=== PATIENT | male | born 1990 | race African-American/Black ===

== ENCOUNTER 2018-03-08 10:25 | Inpatient (IN) ==
[2018-03-08] MEDS ORDERED: Aluminum/Magnesium/Simethacone Susp 30 ML UDC PO PRN (14:19)
[2018-03-08] MEDS ORDERED: Acetaminophen 325 MG Tablet PO PRN (14:19)
--- NOTE | 2018-03-08 19:27 | P.HPPSY ---
Provisional Diagnosis Admission Date: March 08, 2018 13:06 Elmer I.: Unspecified psychosis, r/o Substance induced psychotic disorder Competence Certification of Person's Competence To Provide Express and Informed Consent I have personally examined Hugo Ho, a person being served at [facility] on, March 08, 2018 1927. Express and informed consent means consent voluntarily given in writing, by a competent person, after sufficient explanation and disclosure of the subject matter involved to enable the person to make a knowing and willful decision without any element of force, fraud, deceit, duress, or other form of constraint or coercion. This person is 18 years of age or older, is not now known to be incompetent to consent to treatment with a guardian advocate, and does not have a health care surrogate or proxy currently making medical treatment decisions. I have found this person to be one of the following: [xxx] Competent to provide express and informed consent, as defined above, for voluntary admission to this facility and is competent to provide express and informed consent for treatment. He/she has the consistent capacity to make well reasoned, willful, and knowing decisions concerning his or her medical or mental health treatment. The person fully and consistently understands the purpose of the admission for examination/placement and is fully capable of personally exercising all rights assured under [place] [] Incompetent to provide express and informed consent to voluntary admission, and this is incompetent to provide express and informed consent to treatment. The person must be transferred to involuntary status and a petition for a guardian advocate filed with the Circuit Court. [] Refusing to provide express and informed consent to voluntary admission but is competent to provide express and informed consent for treatment. The person must be discharged or transferred to involuntary status. Form shall be completed within 24 hours of a person's arrival at the receiving facility and filed in the clinical record of each person: 1. Admitted on a voluntary basis 2. Permitted to provide express and informed consent to his/her own treatment 3. Allowed to transfer from involuntary to voluntary status 4. Prior to permitting a person to consent to his or her own treatment after having been previously found incompetent to consent to treatment. History of Present Illness Capacity: Has capacity History of Present Illness: Patient is a 27-year-old -Stateless man, single, no children, unemployed with a past psychiatric history of bipolar disorder as per patient, multiple psychiatric admissions, multiple suicide attempt as per patient, with a substance use history significant for crack cocaine use, marijuana use, alcohol use, with no past medical history who was transferred from another facility under Villanueva act due to patient endorsing auditory hallucinations and paranoid ideations. As per chart patient had presented to the ED with auditory hallucinations and command auditory hallucinations to hurt others with urine toxicology positive for cocaine and marijuana. Patient was found lying in hospital bed, seen with nurse. Discussion nursing staff reported the patient mostly seclusive to her room and sleeping. Patient was able to wake up to interact with interview. States that he wants to get his life back together, reporting having had auditory hallucinations recently and had taken Seroquel in the past to address this. Patient denies any suicide ideations at this time, denies any visual hallucinations or paranoid ideations currently. Patient states that he has been having worsening of symptoms during substance use but states that he just needs to recover. Patient noted with superficial cooperation during interview. Family psychiatric history: Unable to assess due to limited cooperation 's past psychiatric history: Previous psychiatric diagnosis of bipolar disorder , schizophrenia, as per patient, multiple psychiatric admissions, multiple suicide attempts Substance use history: Tobacco use, alcohol use, crack cocaine use and marijuana use Past medical history: Denies but as per chart HIV positive. Allergies: NKDA Social history: Single, no children, unemployed. - Inpatient Certification I certify that the inpatient services were ordered in accordance with Medicare regulations governing the order. This includes certification that hospital inpatient services are reasonable and necessary and in the case of services not specified as inpatient-only under 42 CFR 419.22(n), that they are appropriately provided as inpatient services in accordance to with the 2-midnight benchmark under 43 CFR 412.3(e) I certify that inpatient psychiatric hospital services are medically necessary. Evaluation and treatment and/or diagnostic testing are expected to improve the patient's condition. The patient needs on a daily basis, active treatment furnished directly by or requiring the supervision of inpatient psychiatric facility personnel. Estimated Total Length of Stay (Days): 7 Plans for Post Hospital Care: Not yet determined Review of Systems All other systems reviewed negative except as stated in HPI PMFSH - History History Provided By: Patient, Medical Record - Tobacco History Second Hand Smoke Exposure: No Smoking Status: Never smoker - Alcohol History How Often Do You Have a Drink Containing Alcohol: Never - Substance Use History Substance History: Active Abuse - Substance Use Type Marijuana Status: Active Route Used: Inhalation Reason for Use: Get High Quality Measures - Psychiatric History Psychological trauma history: Unable to assess due to limited cooperation during interview Violence risk to others in the last 6 months: Elevated due to recent complaint altered hallucinations to hurt others Violence risk to self in the last 6 months: Low - Substance Abuse History Drug or alcohol use in the past 12 months: See HPI - Patient Strengths Patient's strengths (minimum of 2): Verbal and communicative Medications and Allergies Active Medications: Active Medications Acetaminophen (Tylenol) 650 mg PO Q4H PRN PRN Reason: Pain 1-5 or Temp >101F Al Hydrox/Mg Hydrox/Simethicone (Mag-Al Plus Susp Liq) 30 ml PO Q6H PRN PRN Reason: DYSPEPSIA Al Hydroxide/Mg Hydroxide (Milk Of Magnesia Liq) 30 ml PO DAILY PRN PRN Reason: CONSTIPATION Diphenhydramine HCl (Benadryl) 50 mg PO HS PRN PRN Reason: INSOMNIA Diphenhydramine HCl (Benadryl Inj) 50 mg IM HS PRN PRN Reason: INSOMNIA Hydroxyzine HCl (Atarax) 50 mg PO Q6H PRN PRN Reason: ANXIETY Nicotine (Habitrol 21 Mg Patch.24 Hr) 1 patch T-DERMAL DAILY [facility] Patch Removal (Remove Old Patch) 1 each T-DERMAL HS [facility] Allergies Allergy/AdvReac Type Severity Reaction Status Date / Time No Known Allergies Allergy Unverified 03/08/18 13:34 Exam Vital signs: Intake & Output 03/08/18 03/08/18 03/09/18 06:59 18:59 06:59 Weight 53.9 kg Other: Weight On Admission 53.9 kg Narrative: Patient not noted to be in acute distress, no gross motor of maladies, signs of tremor or EPS, no psychomotor agitation or retardation. - Constitutional no acute distress, disheveled, cooperative (Superficially) Mental Status Examination Appearance: Dirty, Disheveled Consciousness: Somnolent Orientation: Person, Place Motor Activity: Other (Not formally assessed) Speech: Slow Language: Adequate Fund of Knowledge: Inadequate Attention and Concentration: Inadequate Memory: Impaired Mood: Other ("Not good") Affect: Blunt Thought Process & Associations: Other ([place]) Thought Content: Hallucinations, Delusional Hallucination Type: Auditory Delusion Type: Paranoid Suicidal Ideation: No Suicidal Plan: No Suicidal Intention: No Homicidal Ideation: No Homicidal Plan: No Homicidal Intention: No Insight: Poor Judgment: Poor Assessment and Plan - Assessment (1) Unspecified psychosis Code(s): F29 - Unspecified psychosis not due to a substance or known physiological condition Status: Acute - Plan Plan: Estimated LOS: [] days Patient is a 27-year-old -Stateless man with with a past psychiatric history of bipolar disorder, schizophrenia as per patient, with previous psychiatric admissions and suicide attempts along with polysubstance use disorder with recent intoxication with cocaine and marijuana who was a transfer from a local hospital due to patient endorsing psychotic symptoms in the context of recent substance intoxication. Patient will be admitted under voluntary status, has capacity to consent for treatment. EKG reviewed, QTC is 401 ms, we will order repeat labs in the a.m., start patient on quetiapine 51 g p.o. at bedtime with upper titration for psychosis. We will continue to monitor mood and behavior. Discharge planning a progress. Justification for Continued Inpatient Stay: At risk of further decompensation a lower level of care.
[2018-03-08 20:41] LABS: Chol/HDL Ratio 2.16 Ratio; HDL Cholesterol 50.4 mg/dL (40.0-60.0)
[2018-03-08] MEDS: QUEtiapine 100 MG Tablet PO SCH (21:28)
[2018-03-09 09:49] LABS: Anion Gap 8 meq/L (5-15); Blood Urea Nitrogen 10 mg/dL (7-18); Calcium 8.7 mg/dL (8.5-10.1); Carbon Dioxide 29.5 meq/L (21.0-32.0); Chloride 106 meq/L (98-107); Glomerular Filtration Rate Greater Than 89 mL/min (>89); Glucose,Random 75 mg/dL (74-106); Potassium 3.8 meq/L (3.5-5.1); Sodium 143 meq/L (136-145)
[2018-03-09 13:25] LABS: Hemoglobin A1c 4.1 % (4.3-6.0)
--- NOTE | 2018-03-09 17:01 | P.PNPSY ---
Subjective Remarks: Reviewed electronic medical records and discussed case with staff. Follow-up was conducted in the milieu with MILTON Ramon present. The patient reports that he is doing well. He had just come from taking a shower. States that he sleeping good his appetite is been good. He reports elevated mood. He mentions discharge. However, when asked about auditory hallucinations he is are pacing back and forth and talking about good voices and bad voices. Mental Status Examination Appearance: Dirty, Disheveled Consciousness: Somnolent Orientation: Person, Place Motor Activity: Other (Not formally assessed) Speech: Slow Language: Adequate Fund of Knowledge: Inadequate Attention and Concentration: Inadequate Memory: Impaired Mood: Other ("Not good") Affect: Blunt Thought Process & Associations: Other ([place]) Thought Content: Hallucinations, Delusional Hallucination Type: Auditory Delusion Type: Paranoid Suicidal Ideation: No Suicidal Plan: No Suicidal Intention: No Homicidal Ideation: No Homicidal Plan: No Homicidal Intention: No Insight: Poor Judgment: Poor Assessment and Plan - Assessment (1) Unspecified psychosis Code(s): F29 - Unspecified psychosis not due to a substance or known physiological condition Status: Acute - Plan Plan: Patient will be reevaluated Sunday by the attending psychiatrist. Continue with current treatment plan. Justification for Continued Inpatient Stay: Moving this patient to a less restrictive environment would likely result in decompensation.
[2018-03-09] MEDS: QUEtiapine 100 MG Tablet PO SCH (20:33)
[2018-03-10] MEDS ORDERED: Haloperidol Inj 5 MG/ML Ampul IM ONE (13:27)
[2018-03-10] MEDS ORDERED: LORazepam 1 MG Tablet PO ONE (13:57)
--- NOTE | 2018-03-10 18:56 | P.PNPSY ---
Subjective Remarks: Reviewed electronic medical records and discussed case with staff. Follow-up was conducted in the hallway. Earlier today patient had to be given 1 mg of p.o. Ativan due to to his agitation and aggression. This was believed to be due to environmental stimulus. He was upset over another patient spreading feces over the finnegan muse and door. As well as agitated patients that were calling out on the unit. Patient remains discharge focused. His affect remains irritable and slightly bizarre. Mental Status Examination Appearance: Dirty, Disheveled Consciousness: Somnolent Orientation: Person, Place Motor Activity: Other (Not formally assessed) Speech: Slow Language: Adequate Fund of Knowledge: Inadequate Attention and Concentration: Inadequate Memory: Impaired Mood: Other ("Not good") Affect: Blunt Thought Process & Associations: Other ([place]) Thought Content: Hallucinations, Delusional Hallucination Type: Auditory Delusion Type: Paranoid Suicidal Ideation: No Suicidal Plan: No Suicidal Intention: No Homicidal Ideation: No Homicidal Plan: No Homicidal Intention: No Insight: Poor Judgment: Poor Assessment and Plan - Assessment (1) Unspecified psychosis Code(s): F29 - Unspecified psychosis not due to a substance or known physiological condition Status: Acute - Plan Plan: Patient will be reevaluated Sunday by the attending psychiatrist. Continue with current treatment plan. Justification for Continued Inpatient Stay: Moving this patient to a less restrictive environment would likely result in decompensation.
[2018-03-10] MEDS: QUEtiapine 100 MG Tablet PO SCH (20:19)
--- NOTE | 2018-03-11 10:21 | P.PNPSY ---
Subjective Remarks: Patient seen and examined with nurse. Chart reviewed. I note that the patient was transferred from [facility] under a Villan[place]va act alleging auditory hallucinations giving him direction and telling him to fight other homeless people. Case discussed with nursing staff who notes patient is somewhat bizarre and paranoid. On my examination today, the patient presents as rambling and tangential. He tells me "I do not hear voices until someone threatens me." He does not report feeling threatened presently and denies any suicidal or homicidal ideation. He exhibits some bizarre ideation and his method of expression is idiosyncratic. When I ask how he is feeling he tells me that he is "happy as a 2 legged camel." We discuss his pattern of substance use. He denies any side effects from medications. No physical complaints. Vital Signs Temp Pulse Resp BP Pulse Ox 03/11/18 15:37 98.1 F 80 18 117/68 100 03/11/18 06:00 97.3 F L 52 L 17 108/68 98 03/10/18 18:20 98.6 F 62 18 104/64 98 Laboratory Tests 03/08/18 03/08/18 03/09/18 19:21 19:21 08:47 Sodium 143 Potassium 3.8 Chloride 106 Carbon Dioxide 29.5 Anion Gap 8 BUN 10 Creatinine 0.96 Estimated GFR Greater than 89 Random Glucose 75 Hemoglobin A1c 4.1 L Calcium 8.7 Triglycerides 49 Cholesterol 109 L LDL Cholesterol, Calc 49 HDL Cholesterol 50.4 Cholesterol/HDL Ratio 2.16 Labs from outside hospital reviewed: CBC reveals mild anemia with a hemoglobin of 12.8. CMP unremarkable except for mild hyperglycemia in a nonfasting sample. Alcohol level was 4 at outside hospital and toxicology was positive for cocaine and cannabinoids. Review of Systems All other systems reviewed negative except as stated in HPI (Limitation: Psychosis) Mental Status Examination Appearance: Disheveled Consciousness: Alert Orientation: Person, Place (At least) Motor Activity: Other (No motor abnormalities noted) Speech: Unremarkable Language: Other ([place]) Fund of Knowledge: Inadequate Attention and Concentration: Inadequate Memory: Impaired (Psychosis interferes) Mood: Good Affect: Blunt Thought Process & Associations: Tangential Thought Content: Bizarre thinking Hallucination Type: None Delusion Type: None Suicidal Ideation: No Suicidal Plan: No Suicidal Intention: No Homicidal Ideation: No Homicidal Plan: No Homicidal Intention: No Insight: Poor Judgment: Poor Assessment and Plan - Assessment (1) Unspecified psychosis Code(s): F29 - Unspecified psychosis not due to a substance or known physiological condition Status: Acute - Plan Plan: Titrate Seroquel to 75 mg at bedtime to target residual psychotic symptoms with plans for ongoing titration to effect and as tolerated. Continue to monitor on the inpatient unit. Continue other medications and care as ordered. Justification for Continued Inpatient Stay: Medication changes. Impairment in reality construction. High risk for decompensation in less restrictive setting. Discharge Planning: Pending psychiatric stabilization. Request Healthcare Surrogate/Guardian Advocate?: No
[2018-03-11] MEDS ORDERED: Haloperidol Inj 5 MG/ML Ampul ONE (19:16)
[2018-03-11] MEDS ORDERED: Haloperidol Inj 5 MG/ML Ampul IM ONE (20:00)
[2018-03-11] MEDS: QUEtiapine 25 MG Tablet PO SCH (20:47)
--- NOTE | 2018-03-12 15:32 | P.PNPSY ---
Subjective Remarks: Reviewed electronic medical records and discussed case with staff. Follow-up was conducted in the hallway. His nurse reports that he had a bad night and was aggressive punching windows. He required an emergency treatment order. Today he is still somewhat manic likely due to the environmental stressors. Looked into his E MAR and no he received the ETO's prior to his first dose of Seroquel. In light of that I will not be making any medication changes as of this time. Mental Status Examination Appearance: Disheveled Consciousness: Alert Orientation: Person, Place (At least) Motor Activity: Other (No motor abnormalities noted) Speech: Unremarkable Language: Other ([place]) Fund of Knowledge: Inadequate Attention and Concentration: Inadequate Memory: Impaired (Psychosis interferes) Mood: Good Affect: Blunt Thought Process & Associations: Tangential Thought Content: Bizarre thinking Hallucination Type: None Delusion Type: None Suicidal Ideation: No Suicidal Plan: No Suicidal Intention: No Homicidal Ideation: No Homicidal Plan: No Homicidal Intention: No Insight: Poor Judgment: Poor Assessment and Plan - Assessment (1) Unspecified psychosis Code(s): F29 - Unspecified psychosis not due to a substance or known physiological condition Status: Acute - Plan Plan: Patient will be reevaluated by the attending psychiatrist. Continue with current treatment plan. Justification for Continued Inpatient Stay: Moving this patient to a less restrictive environment would likely result in decompensation. Request Healthcare Surrogate/Guardian Advocate?: No
[2018-03-12] MEDS: QUEtiapine 25 MG Tablet PO SCH (20:09)
[2018-03-13] MEDS ORDERED: Haloperidol Inj 5 MG/ML Ampul ONE (13:02)
[2018-03-13] MEDS ORDERED: Haloperidol Inj 5 MG/ML Ampul IM ONE (13:02)
--- NOTE | 2018-03-13 20:47 | P.PNPSY ---
Subjective Remarks: Patient seen for follow-up, chart reviewed. Discussion with nursing staff reported that patient noted to be inappropriate times, receive ETO 2 days ago continues to be noted to be internally preoccupied also denying any auditory hallucinations. Patient was found heavily on unit making bizarre behavior movements on the unit. Patient reports that he is feeling "great" stating that he had found ways to calm down. Patient reports eating and drinking well. When explained the patient will require further evaluation and observation patient began to become agitated stating "I do not want to hurt myself but if it all to be out of here want to hurt someone else". Patient was difficult to redirect and becoming increasingly agitated which she required ETO and was given Haldol 5 mg IM/Ativan 2 mg IM for agitation. Review of Systems All other systems reviewed negative except as stated in HPI Mental Status Examination Appearance: Disheveled Consciousness: Alert Orientation: Person, Place (At least) Motor Activity: Other (No motor abnormalities noted) Speech: Unremarkable Language: Other ([place]) Fund of Knowledge: Inadequate Attention and Concentration: Inadequate Memory: Impaired (Psychosis interferes) Mood: Angry Affect: Irritable Thought Process & Associations: Tangential Thought Content: Bizarre thinking Hallucination Type: None Delusion Type: None Suicidal Ideation: No Suicidal Plan: No Suicidal Intention: No Homicidal Ideation: No Homicidal Plan: No Homicidal Intention: No Insight: Poor Judgment: Poor Assessment and Plan - Assessment (1) Unspecified psychosis Code(s): F29 - Unspecified psychosis not due to a substance or known physiological condition Status: Acute - Plan Plan: Patient continues with internal preoccupation, bizarre behavior. Patient receive ETO today due to agitation. We will increase quetiapine to 100 mg p.o. at bedtime for psychosis and mood stabilization. Continue to monitor mood and behavior. Discharge planning in progress. Justification for Continued Inpatient Stay: At risk of further decompensation at lower level care. Request Healthcare Surrogate/Guardian Advocate?: No
[2018-03-13] MEDS: QUEtiapine 100 MG Tablet PO SCH (20:57)
--- NOTE | 2018-03-14 09:29 | P.PNPSY ---
Subjective Remarks: Patient seen and examined with nurse. Chart reviewed. Case discussed with nursing staff who reports patient has been somewhat irritable today. On my examination today, the patient presents as discharged focused. He is quite intrusive and disinhibited. He becomes increasingly agitated when he learns that he will not be discharged today, intruding on my interview with another patient. When not perseverative on discharge, the patient's thought process is tangential. He denies audiovisual hallucinations but appears frankly internally stimulated. He denies suicidal or homicidal ideation. Denies side effects from medications. No physical complaints. Vital Signs Temp Pulse Resp BP Pulse Ox 03/14/18 06:19 97.5 F L 53 L 16 107/66 100 Intake and Output 03/14/18 03/14/18 03/14/18 06:59 14:59 22:59 Other: Weight 52.7 kg Laboratory Results - last 24 hr 03/13/18 17:10 HIV 1&2 Ab/P24 Ag 4thGn Reflex H Labs reviewed. HIV screen results noted. Hospitalist consultation requested to address this. Review of Systems unobtainable due to mental condition Mental Status Examination Appearance: Disheveled Consciousness: Alert Orientation: Person, Place (At least) Motor Activity: Other (Somewhat hyperkinetic but no other motor abnormalities noted.) Speech: Unremarkable Language: Other ([place]) Fund of Knowledge: Inadequate Attention and Concentration: Inadequate Memory: Impaired (Psychosis interferes) Mood: Anxious, Irritable Affect: Irritable, Anxious Thought Process & Associations: Tangential Thought Content: Bizarre thinking Hallucination Type: Other (Appears internally stimulated) Delusion Type: None Suicidal Ideation: No Suicidal Plan: No Suicidal Intention: No Homicidal Ideation: No Homicidal Plan: No Homicidal Intention: No Insight: Poor Judgment: Poor Assessment and Plan - Assessment (1) Unspecified psychosis Code(s): F29 - Unspecified psychosis not due to a substance or known physiological condition Status: Acute - Plan Plan: Titrate Seroquel to 50 mg in the morning and 100 mg at bedtime to target residual psychiatric symptoms. Request hospitalist consultation as noted above. Continue to monitor on the high acuity unit. Continue other medications and care as ordered. Patient is demanding discharge today but remains too psychiatrically decompensated for safe discharge. I will therefore initiate a petition for involuntary psychiatric hospitalization and consult for second opinion. Justification for Continued Inpatient Stay: Medication changes. Impairment in reality construction. High risk for decompensation in less restrictive environment. Discharge Planning: Pending psychiatric stabilization. Request Healthcare Surrogate/Guardian Advocate?: No
[2018-03-14] MEDS: QUEtiapine 25 MG Tablet PO SCH (10:13)
[2018-03-14] MEDS ORDERED: Benztropine Inj 2 MG/2 ML Ampul ONE (19:09)
[2018-03-14] MEDS ORDERED: Benztropine Inj 2 MG/2 ML Ampul IM ONE (19:30)
[2018-03-14] MEDS: QUEtiapine 100 MG Tablet PO SCH (21:20)
--- NOTE | 2018-03-15 09:24 | P.TTN ---
- Patient Problems Problems: 1. Discharge planning 2. Medication compliance 3. Knowledge deficit 4. Lack of coping skills - Progress Toward Goals Provider Present: Dr. Cass Neumann (Dr. Neumann is titrating medications Seroquel, requesting counselor seek up collateral information of possible, patient needs to remain for further stabilization) Psychiatric Counselors Present: Babar Whalen Jr., [facility] (Counselor will attempt to obtain collateral information and discuss discharge disposition with both the patient and the mother.) Group Spec/RT/OT/WILSON Present: STEVE Iqbal (Patient attends groups is mostly in appropriate, needs direction and has difficulty following group rules. ) - Documentation Teaching Recipient: Patient
--- NOTE | 2018-03-15 10:48 | P.CON ---
History of Present Illness Service: Hospitalist Consult date: 03/15/18 Requesting Physician: Deondre Neumann Reason for Consult: Assist with ongoing medical management Primary Care Provider: UNKNOWN History of Present Illness: This is a 27yo male patient with a PMHX significant for HIV, syphilis, anxiety, depression, bipolar disorder who was transferred to [facility] psychiatric unit from another facility for endorsing auditory hallucinations and paranoid ideations. Patient was found to have abnormal HIV test and hospitalist services were consulted to assist with ongoing medical management. Patient seen and examined. Patient is an extremely poor historian. He is very discharged focused. He denies any specific medical history. When asked if he is HIV positive he admits that he is. He says he is compliant with his HIV medications but he cannot tell me the names of any of the medications he takes. He states he follows with "[facility]" which she reports is in [place] "I think". When asked if he is ever been treated for syphilis, he states yes he thinks in 2009. When asked if he had any surgeries in the past, he says no but when asked about the scar on his neck he admits to previous trach and PEG tube placement after he had a seizure. When asked when was his last seizure, he states "a long time ago". He denies any specific medical complaints at this time. He denies any fever or chills. He denies any dizziness or weight loss. He denies any chest pain or shortness of breath. He denies any nausea, vomiting or abdominal pain. Per review of the medical records and the previous facility, patient's urine drug screen was positive for cocaine and cannabis. Review of Systems All other systems reviewed negative except as stated in HPI PMFSH - History History Provided By: Patient, Medical Record - Medical History Medical History: Medical History (Last Updated 03/15/18 @ 10:38 by Tania Siddiqui) Bipolar disorder Depression HIV (human immunodeficiency virus infection) Hx of syphilis Polysubstance abuse - Surgical History Surgical History: Surgical History (Last Updated 03/15/18 @ 10:40 by Tania Siddiqui) H/O hand surgery Hx of tracheostomy PEG (percutaneous endoscopic gastrostomy) status - Family History Family History: Family History (Last Reviewed 03/15/18 @ 10:40 by Tania Artur) Other No pertinent family history - Social History I have reviewed the patient's Social History: Yes - Tobacco History Second Hand Smoke Exposure: Yes Tobacco Use In Past 30 Days: Yes Smoking Status: Current every day smoker Tobacco Type: Cigarettes - Alcohol History How Often Do You Have a Drink Containing Alcohol: 2 to 3 times a week - Substance Use History Substance History: Active Abuse - Substance Use Type Marijuana Status: Active Route Used: Inhalation Frequency: stated ocassional use Reason for Use: Get High Crack/Cocaine Status: Active Route Used: Inhalation Frequency: Unable to obtain Last Used: 2- 3 days ago Reason for Use: Get High Comment: Patient stated he will use " anything I can smoke" Alcohol Status: Active Frequency: 2 16 oz cans of beer, unable to obtain frequency Last Used: yesterday Reason for Use: Feels Good, Fit In Medications and Allergies Active Medications: Active Medications Acetaminophen (Tylenol) 650 mg PO Q4H PRN PRN Reason: Pain 1-5 or Temp >101F Al Hydrox/Mg Hydrox/Simethicone (Mag-Al Plus Susp Liq) 30 ml PO Q6H PRN PRN Reason: DYSPEPSIA Al Hydroxide/Mg Hydroxide (Milk Of Magnesia Liq) 30 ml PO DAILY PRN PRN Reason: CONSTIPATION Diphenhydramine HCl (Benadryl) 50 mg PO HS PRN PRN Reason: INSOMNIA Last Admin: 03/13/18 20:56 Dose: 50 mg Diphenhydramine HCl (Benadryl Inj) 50 mg IM HS PRN PRN Reason: INSOMNIA Hydroxyzine HCl (Atarax) 50 mg PO Q6H PRN PRN Reason: ANXIETY Last Admin: 03/14/18 15:49 Dose: 50 mg Miscellaneous (Pill Splitter) 1 each OTHER UNSCH PRN PRN Reason: SEE LABEL COMMENTS Nicotine (Habitrol 21 Mg Patch.24 Hr) 1 patch T-DERMAL DAILY [facility] Last Admin: 03/15/18 09:37 Dose: 1 patch Patch Removal (Remove Old Patch) 1 each T-DERMAL HS [facility] Last Admin: 03/14/18 21:00 Dose: Not Given Quetiapine Fumarate (Seroquel) 100 mg PO HS [facility] Last Admin: 03/14/18 21:20 Dose: Not Given Quetiapine Fumarate (Seroquel) 50 mg PO DAILY [facility] Last Admin: 03/14/18 10:13 Dose: 50 mg Allergies Allergy/AdvReac Type Severity Reaction Status Date / Time quetiapine [From Seroquel] AdvReac Severe Cramping Verified 03/15/18 07:14 of the Muscles Physical Exam Vital signs: Vital Signs 03/15/18 06:22 Temperature 97.3 F L Pulse Rate 71 Respiratory Rate 16 Blood Pressure 107/70 Pulse Oximetry 99 Narrative: GENERAL: This is a thin young male patient, INAD. Awake and alert. Witnessed ambulating around the unit. SKIN: Warm and dry. HEAD: Atraumatic. Normocephalic. EYES: Pupils equal and round. No scleral icterus. No injection or drainage. ENT: No nasal bleeding or discharge. Mucous membranes pink and moist. NECK: Trachea midline. +well healed previously placed trach scar. CARDIOVASCULAR: Regular rate and rhythm. RESPIRATORY: No accessory muscle use. Clear to auscultation. Breath sounds equal bilaterally. GASTROINTESTINAL: Abdomen soft, non-tender, nondistended. Hepatic and splenic margins not palpable. MUSCULOSKELETAL: Extremities without clubbing, cyanosis, or edema. No obvious deformities. NEUROLOGICAL: Awake and alert. No obvious cranial nerve deficits. Motor grossly within normal limits. Able to move all extremities spontaneously. Normal speech. PSYCHIATRIC: Calm and cooperative. Judgement and insight poor. Assessment and Plan - Plan 27yo male patient with a PMHX significant for HIV, syphilis, anxiety, depression, bipolar disorder who was transferred to [place] inpatient psychiatric unit from another facility for endorsing auditory hallucinations and paranoid ideations. Patient was found to have abnormal HIV test and hospitalist services were consulted to assist with ongoing medical management. Depression Anxiety Bipolar disorder Acute psychosis -management per psychiatric team -check RPR HIV, suspect noncompliant with follow up/antiretroviral medications Hx of syphilis, treated in 2009 by patient report -will obtain Hepatitis profile -Recommend patient follow up with [facility] for treatment of HIV Polysubstance abuse Ongoing tobaccoism UDS 03/08 from outside facility + cocaine and cannabis -discussed smoking cessation DVT prophylaxis -patient is ambulatory Thank you very kindly for this consultation. Discussed Condition With: patient, nursing staff, Dr. Carrizales
--- NOTE | 2018-03-15 11:12 | P.PNPSY ---
Subjective Remarks: Patient seen and examined with nurse. Chart reviewed. Case discussed with nursing staff. Patient experienced possible dystonic reaction involving his back last evening. This reportedly responded well to IM Cogentin. He refused his HS dose of Seroquel. Case discussed in treatment team. Therapists note patient is bizarre in groups and unpredictable. On my exam, patient remains extremely discharge focused. I try to engage him in a discussion of his reported medication side effect from last night. However, the patient refuses to discuss anything besides his desire for discharge. He remains internally stimulated, paranoid and bizarre. He exhibits poor frustration tolerance. He is unable to tolerate extended interview and storms off. No evident side effects from medications, and in particular no noted motoric side effects from medications. No physical complaints. Vital Signs Temp Pulse Resp BP Pulse Ox 03/15/18 06:22 97.3 F L 71 16 107/70 99 Laboratory Results - last 24 hr 03/15/18 03/15/18 03/15/18 10:12 10:12 10:12 Vitamin B12 499 TSH 1.530 RPR Titer 1:2 H RPR Reactive H Hepatitis A IgM Ab Nonreactive Hep Bs Antigen Nonreactive Hep B Core IgM Ab Nonreactive Hep C IgG Ab Nonreactive Labs reviewed. Review of Systems All other systems reviewed negative except as stated in HPI (Limitation: Psychosis) Mental Status Examination Appearance: Disheveled Consciousness: Alert Orientation: Person, Place (At least) Motor Activity: Other (No hand tremor, no dystonia, no dyskinesia, no other motor abnormality noted.) Speech: Unremarkable Language: Other (Rambling) Fund of Knowledge: Inadequate Attention and Concentration: Inadequate Memory: Impaired (Psychosis interferes) Mood: Oppositional, Anxious, Irritable Affect: Irritable, Anxious Thought Process & Associations: Tangential Thought Content: Bizarre thinking, Hallucinations, Delusional Hallucination Type: Other (Internally preoccupied) Delusion Type: Paranoid Suicidal Ideation: No Homicidal Ideation: No Insight: Poor Judgment: Poor Assessment and Plan - Assessment (1) Unspecified psychosis Code(s): F29 - Unspecified psychosis not due to a substance or known physiological condition Status: Acute - Plan Plan: Possible dystonic reaction associated with Seroquel. Seroquel is among the antipsychotics least associated with significant EPS, and so I do not think that switching to a different agent would be helpful. Patient does require ongoing antipsychotic therapy for his psychotic symptoms. I will therefore add scheduled Cogentin and continue to offer the Seroquel. To consider further titration of Seroquel dose over the weekend. Continue to monitor on the high acuity unit. Continue other medications and care as ordered. Hospitalist input noted and appreciated. Justification for Continued Inpatient Stay: Medication change. Impairment in reality construction. Risk for decompensation in less restrictive environment. Discharge Planning: Pending psychiatric stabilization Request Healthcare Surrogate/Guardian Advocate?: No
[2018-03-15 11:22] LABS: Hepatitits B Surface Antigen Nonreactive (Nonreactive)
[2018-03-15 11:41] LABS: Thyroid Stimulating Hormone 1.53 uIU/mL (0.358-3.740)
[2018-03-15 12:02] LABS: Hepatitis A IgM Antibody Nonreactive (Nonreactive)
[2018-03-15 15:00] LABS: HIV 1 Antibody Positive (Negative); HIV 2 Antibody Negative (Negative)
--- NOTE | 2018-03-15 17:57 | P.CONPSY ---
Provisional Diagnosis Admission Date: March 08, 2018 13:06 [place] I.: Unspecified psychosis, r/o Substance induced psychotic disorder History of Present Illness Service: Psychiatry Consult date: 03/15/18 Requesting Physician: Deondre Neumann Reason for Consult: Second opinion Primary Care Provider: UNKNOWN History of Present Illness: Patient is a 27-year-old -[place] man, single, no children, unemployed with a past psychiatric history of bipolar disorder as per patient, multiple psychiatric admissions, multiple suicide attempt as per patient, with a substance use history significant for crack cocaine use, marijuana use, alcohol use, with no past medical history who was transferred from another facility under [facility] due to patient endorsing auditory hallucinations and paranoid ideations. Patient was found ambulating on the unit, noted with bizarre behavior and noted to be talking to self, responding to internal stimuli in the day room. Patient states that he feeling "awesome", noted to endorse vague physical symptoms such as "feeling tingling, something pulling my leg" denies any AVH, reports sleeping well. Review of Systems All other systems reviewed negative except as stated in HPI PMFSH - History History Provided By: Patient, Medical Record - Medical History Medical History: Medical History (Last Updated 03/15/18 @ 10:38 by Tania Siddiqui) Bipolar disorder Depression HIV (human immunodeficiency virus infection) Hx of syphilis Polysubstance abuse - Surgical History Surgical History: Surgical History (Last Updated 03/15/18 @ 10:40 by Tania Siddiqui) H/O hand surgery Hx of tracheostomy PEG (percutaneous endoscopic gastrostomy) status - Family History Family History: Family History (Last Reviewed 03/15/18 @ 10:40 by Tania Siddiqui) Other No pertinent family history - Tobacco History Second Hand Smoke Exposure: Yes Tobacco Use In Past 30 Days: Yes Smoking Status: Current every day smoker Tobacco Type: Cigarettes - Alcohol History How Often Do You Have a Drink Containing Alcohol: 2 to 3 times a week - Substance Use History Substance History: Active Abuse - Substance Use Type Marijuana Status: Active Route Used: Inhalation Frequency: stated ocassional use Reason for Use: Get High Crack/Cocaine Status: Active Route Used: Inhalation Frequency: Unable to obtain Last Used: 2- 3 days ago Reason for Use: Get High Comment: Patient stated he will use " anything I can smoke" Alcohol Status: Active Frequency: 2 16 oz cans of beer, unable to obtain frequency Last Used: yesterday Reason for Use: Feels Good, Fit In Medications and Allergies Active Medications: Active Medications Acetaminophen (Tylenol) 650 mg PO Q4H PRN PRN Reason: Pain 1-5 or Temp >101F Al Hydrox/Mg Hydrox/Simethicone (Mag-Al Plus Susp Liq) 30 ml PO Q6H PRN PRN Reason: DYSPEPSIA Al Hydroxide/Mg Hydroxide (Milk Of Magnesia Liq) 30 ml PO DAILY PRN PRN Reason: CONSTIPATION Benztropine Mesylate (Cogentin) 1 mg PO BID [facility] Last Admin: 03/15/18 12:15 Dose: 1 mg Diphenhydramine HCl (Benadryl) 50 mg PO HS PRN PRN Reason: INSOMNIA Last Admin: 03/13/18 20:56 Dose: 50 mg Diphenhydramine HCl (Benadryl Inj) 50 mg IM HS PRN PRN Reason: INSOMNIA Hydroxyzine HCl (Atarax) 50 mg PO Q6H PRN PRN Reason: ANXIETY Last Admin: 03/14/18 15:49 Dose: 50 mg Miscellaneous (Pill Splitter) 1 each OTHER UNSCH PRN PRN Reason: SEE LABEL COMMENTS Nicotine (Habitrol 21 Mg Patch.24 Hr) 1 patch T-DERMAL DAILY [facility] Last Admin: 03/15/18 09:37 Dose: 1 patch Patch Removal (Remove Old Patch) 1 each T-DERMAL HS [facility] Last Admin: 03/14/18 21:00 Dose: Not Given Quetiapine Fumarate (Seroquel) 100 mg PO HS [facility] Last Admin: 03/14/18 21:20 Dose: Not Given Quetiapine Fumarate (Seroquel) 50 mg PO DAILY [facility] Last Admin: 03/14/18 10:13 Dose: 50 mg Allergies Allergy/AdvReac Type Severity Reaction Status Date / Time No Known Allergies Allergy Unverified 03/15/18 12:24 Exam Vital signs: Vital Signs 03/15/18 06:22 Temperature 97.3 F L Pulse Rate 71 Respiratory Rate 16 Blood Pressure 107/70 Pulse Oximetry 99 - Constitutional no acute distress, cooperative Mental Status Examination Appearance: Disheveled Consciousness: Alert Orientation: Person, Place (At least) Motor Activity: Other (No hand tremor, no dystonia, no dyskinesia, no other motor abnormality noted.) Speech: Unremarkable Language: Other (Rambling) Fund of Knowledge: Inadequate Attention and Concentration: Inadequate Memory: Impaired (Psychosis interferes) Mood: Anxious Affect: Irritable, Anxious Thought Process & Associations: Tangential Thought Content: Bizarre thinking, Hallucinations, Delusional Hallucination Type: Other (Internally preoccupied) Delusion Type: Paranoid Suicidal Ideation: No Suicidal Plan: No Suicidal Intention: No Homicidal Ideation: No Homicidal Plan: No Homicidal Intention: No Insight: Poor Judgment: Poor Assessment and Plan - Assessment (1) Unspecified psychosis Code(s): F29 - Unspecified psychosis not due to a substance or known physiological condition Status: Acute - Plan Plan: I have seen and examined this patient, reviewed the documentation, and I agree and concur with Dr. Neumann assessment and plan. I have completed second opinion for the petition for involuntary hospitalization. Consult appreciated. Justification for Continued Inpatient Stay: At risk of further decompensation at lower level care. Request Healthcare Surrogate/Guardian Advocate?: No
[2018-03-15] MEDS: QUEtiapine 100 MG Tablet PO SCH (21:11)
[2018-03-16] MEDS: QUEtiapine 25 MG Tablet PO SCH (08:36)
--- NOTE | 2018-03-16 15:50 | P.PN ---
Subjective Interval history: Follow patient with HIV. Patient seen ambulating around the unit without any difficulty. He does not voice any medical complaints. He wants to know when he can be discharged. Discussed with nursing staff, no adverse events noted overnight. Physical Exam Vital signs: Vital Signs 03/15/18 18:30 03/16/18 06:00 Temperature 97.3 F L Pulse Rate 96 H 63 Respiratory Rate 17 18 Blood Pressure 127/72 114/62 Pulse Oximetry 98 99 Narrative: GENERAL: This is a thin young male patient, INAD. Awake and alert. Witnessed ambulating around the unit. SKIN: Warm and dry. HEENT: Atraumatic. Normocephalic. Pupils equal and round. No scleral icterus. No injection or drainage. No nasal bleeding or discharge. Mucous membranes pink and moist. NECK: Trachea midline. +well healed previously placed trach scar. CARDIOVASCULAR: Regular rate and rhythm. RESPIRATORY: No accessory muscle use. Clear to auscultation. Breath sounds equal bilaterally. GASTROINTESTINAL: Abdomen soft, non-tender, nondistended. Hepatic and splenic margins not palpable. MUSCULOSKELETAL: Extremities without clubbing, cyanosis, or edema. No obvious deformities. NEUROLOGICAL: Awake and alert. No obvious cranial nerve deficits. Motor grossly within normal limits. Able to move all extremities spontaneously. Normal speech. PSYCHIATRIC: Calm and cooperative. Judgement and insight poor. Results - Labs CBC & Chem 7: 03/09/18 08:47 Assessment and Plan - Plan 27yo male patient with a PMHX significant for HIV, syphilis, anxiety, depression, bipolar disorder who was transferred to [place] inpatient psychiatric unit from another facility for endorsing auditory hallucinations and paranoid ideations. Patient was found to have abnormal HIV test and hospitalist services were consulted to assist with ongoing medical management. Depression Anxiety Bipolar disorder Acute psychosis -management per psychiatric team HIV, suspect noncompliant with follow up/antiretroviral medications Hx of syphilis, treated in 2009 by patient report, low titer Hep profile neg -We will obtain CD4 count to determine if prophylaxis treatment indicated -Recommend patient follow up with [facility] for treatment of HIV Polysubstance abuse Ongoing tobaccoism UDS 03/08 from outside facility + cocaine and cannabis -discussed smoking cessation DVT prophylaxis -patient is ambulatory Patient appears stable from hospitalist standpoint. [facility] will sign off. Please reconsult if needed. Discussed Condition With: patient, nursing staff
--- NOTE | 2018-03-16 18:39 | P.PNPSY ---
Subjective Remarks: Reviewed electronic medical records and discussed case with staff. Follow-up was conducted in the hallway with MILTON Ghotra present. The patient was noted to be acting slightly bizarre but it did not be manner in the hallway. His nurse reports he has been compliant with his medications and had only one incident of slamming doors when his food was not what he wanted. He does report that he sleeping and eating well. He states that his mood is happy and his affect does seem to be fairly euthymic today. Mental Status Examination Appearance: Disheveled Consciousness: Alert Orientation: Person, Place (At least) Motor Activity: Other (No hand tremor, no dystonia, no dyskinesia, no other motor abnormality noted.) Speech: Unremarkable Language: Other (Rambling) Fund of Knowledge: Inadequate Attention and Concentration: Inadequate Memory: Impaired (Psychosis interferes) Mood: Oppositional, Anxious, Irritable Affect: Irritable, Anxious Thought Process & Associations: Tangential Thought Content: Bizarre thinking, Hallucinations, Delusional Hallucination Type: Other (Internally preoccupied) Delusion Type: Paranoid Suicidal Ideation: No Suicidal Plan: No Suicidal Intention: No Homicidal Ideation: No Homicidal Plan: No Homicidal Intention: No Insight: Poor Judgment: Poor Assessment and Plan - Assessment (1) Unspecified psychosis Code(s): F29 - Unspecified psychosis not due to a substance or known physiological condition Status: Acute - Plan Plan: Patient will be reevaluated Sunday by the attending psychiatrist. Continue with current treatment plan. Justification for Continued Inpatient Stay: Moving this patient to a less restrictive environment would likely result in decompensation. Request Healthcare Surrogate/Guardian Advocate?: No
[2018-03-16] MEDS: QUEtiapine 100 MG Tablet PO SCH (20:14)
[2018-03-17] MEDS: QUEtiapine 25 MG Tablet PO SCH (08:49)
--- NOTE | 2018-03-17 16:27 | P.PNPSY ---
Subjective Remarks: Reviewed electronic medical records and discussed case with staff. Follow-up was conducted in the hallway. Patient states that when he is anxious he goes to his room and dances as a coping strategy. He denies any auditory or visual hallucinations. He is eating and sleeping well. No behavioral concerns. Denies SI/HI. Review of Systems All other systems reviewed negative except as stated in HPI Mental Status Examination Appearance: Disheveled Consciousness: Alert Orientation: Person, Place (At least) Motor Activity: Other (No hand tremor, no dystonia, no dyskinesia, no other motor abnormality noted.) Speech: Unremarkable Language: Other (Rambling) Fund of Knowledge: Inadequate Attention and Concentration: Inadequate Memory: Impaired (Psychosis interferes) Mood: Anxious Affect: Irritable, Anxious Thought Process & Associations: Tangential Thought Content: Bizarre thinking, Hallucinations, Delusional Hallucination Type: Other (Internally preoccupied) Delusion Type: Paranoid Suicidal Ideation: No Suicidal Plan: No Suicidal Intention: No Homicidal Ideation: No Homicidal Plan: No Homicidal Intention: No Insight: Poor Judgment: Poor Assessment and Plan - Assessment (1) Unspecified psychosis Code(s): F29 - Unspecified psychosis not due to a substance or known physiological condition Status: Acute - Plan Plan: Continue current treatment plan. Patient will be seen by psychiatrist on Sunday. Justification for Continued Inpatient Stay: Moving patient to a less restrictive environment may result in his decompensation. Request Healthcare Surrogate/Guardian Advocate?: No
[2018-03-17] MEDS: QUEtiapine 100 MG Tablet PO SCH (20:27)
[2018-03-18 06:15] VITALS: BP 114/57; PULSE 73; RESP 16; TEMP 98; O2SAT 100
[2018-03-18] MEDS: QUEtiapine 25 MG Tablet PO SCH (08:41)
--- NOTE | 2018-03-18 10:55 | P.DSPSY ---
Psychiatry Discharge Summary Inpatient Psychiatric care?: Yes Advance Directives: No Mental Health Advance Directive: No Health Care Proxy: No - Admission Admission Date: March 08, 2018 13:06 - Admission Diagnosis (1) Unspecified psychosis Code(s): F29 - Unspecified psychosis not due to a substance or known physiological condition Brief History: Patient is a 27-year-old -Al[place]ian man, single, no children, unemployed with a past psychiatric history of bipolar disorder as per patient, multiple psychiatric admissions, multiple suicide attempt as per patient, with a substance use history significant for crack cocaine use, marijuana use, alcohol use, with no past medical history who was transferred from another facility under [facility] due to patient endorsing auditory hallucinations and paranoid ideations. As per chart patient had presented to the ED with auditory hallucinations and command auditory hallucinations to hurt others with urine toxicology positive for cocaine and marijuana. Patient was found lying in hospital bed, seen with nurse. Discussion nursing staff reported the patient mostly seclusive to her room and sleeping. Patient was able to wake up to interact with interview. States that he wants to get his life back together, reporting having had auditory hallucinations recently and had taken Seroquel in the past to address this. Patient denies any suicide ideations at this time, denies any visual hallucinations or paranoid ideations currently. Patient states that he has been having worsening of symptoms during substance use but states that he just needs to recover. Patient noted with superficial cooperation during interview. Family psychiatric history: Unable to assess due to limited cooperation 's past psychiatric history: Previous psychiatric diagnosis of bipolar disorder , schizophrenia, as per patient, multiple psychiatric admissions, multiple suicide attempts Substance use history: Tobacco use, alcohol use, crack cocaine use and marijuana use Past medical history: Denies but as per chart HIV positive. Allergies: NKDA Social history: Single, no children, unemployed. Tobacco Use In Past 30 Days: Yes How Often Do You Have a Drink Containing Alcohol: 2 to 3 times a week Hospital Course: Patient was admitted to a locked, inpatient psychiatric unit. A general medical consultation was obtained. Appropriate precautions were in place throughout patient's hospital stay. Patient was seen and examined on the unit by psychiatry and also visited by counselor. Psychotropic medications were adjusted. Patient had improvement in presenting psychiatric symptoms during the course of his hospital stay. There was no evidence of any suicidality or homicidality while the patient was on the inpatient unit. On the day of discharge: Patient seen and examined with nurse. Chart reviewed. Case discussed with nursing staff. Nursing staff is familiar with patient from major hospital setting and reports that there is some suspicion for malingering of psychiatric symptoms in that setting. He has been no significant behavioral problem overnight. On my examination today, patient is calm and cooperative with exam. He is requesting discharge from the inpatient psychiatric unit today. He denies any suicidal or homicidal ideation, intent or plan. He says that he would not act on any suicidal or violent impulse because "Vladimir wouldn't like that." I can elicit no depressive or hypomanic/ manic symptoms besides some reported subjective mild racing thoughts. We discuss titrating patient's Seroquel on discharge to manage this residual, mild symptom. He has no audiovisual hallucinations and denies any command auditory hallucinations to hurt self or others. I can elicit no delusional material. He denies side effects from medications. He has no physical complaints. Suicide and violence risk assessment on day of discharge both suggest lower imminent risk from mental illness and the patient's level of function is adequate for outpatient care. Patient has maximized benefit from this inpatient psychiatric hospital stay and will be discharged today with psychiatric follow-up as arranged by counselor. Patient is also to follow up with primary care and with the [facility] for treatment of HIV as recommended by the hospitalist cardiology consultants. I have counseled the patient to abstain from any substances of abuse. I have counseled the patient regarding warning signs for need to return to the psychiatric emergency room as part of a general safety plan. As noted above, HS dose of Seroquel was titrated to 150mg on discharge. - Discharge Discharge Date: 03/18/18 - Discharge Diagnosis (1) Unspecified psychosis Diagnosis: Principal (Stabilized) Code(s): F29 - Unspecified psychosis not due to a substance or known physiological condition Status: Acute Discharge Disposition: As per counselor's notes. - Discharge Instructions Discharge Diet: Regular Diet Activities You Can Perform: Weight Bearing As Tolerat - Discharge Time <= 30 minutes Mental Status Examination Appearance: Appropriate Consciousness: Alert Orientation: x4 Motor Activity: Normal gait, Other (No abnormal motor movements noted) Speech: Unremarkable Language: Adequate Fund of Knowledge: Inadequate Attention and Concentration: Adequate (Fair) Memory: Unremarkable Mood: Appropriate Affect: Appropriate Thought Process & Associations: Intact Thought Content: Appropriate Hallucination Type: None Delusion Type: None Suicidal Ideation: No Suicidal Plan: No Suicidal Intention: No Homicidal Ideation: No Homicidal Plan: No Homicidal Intention: No Insight: Poor Judgment: Poor Mental Status Exam Remarks: Insight and judgment are likely chronically poor Discharge/Advance Care Plan - Results Vital Signs: Last Vital Signs Temp 98.0 F 03/18/18 06:00 Pulse 73 03/18/18 06:00 Resp 16 03/18/18 06:00 BP 114/57 L 03/18/18 06:00 Pulse Ox 100 03/18/18 06:00 Lab Results: Laboratory Results Hemoglobin A1c 4.1 % (4.3-6.0) L 03/08/18 19:21 Triglycerides 49 mg/dL (42-150) 03/08/18 19:21 Cholesterol 109 mg/dL (120-200) L 03/08/18 19:21 LDL Cholesterol, Calc 49 mg/dL (0-99) 03/08/18 19:21 HDL Cholesterol 50.4 mg/dL (40.0-60.0) 03/08/18 19:21 TSH 1.530 uIU/mL (0.358-3.740) 03/15/18 10:12 Summary of Procedures: None done Pending Results: None - Medications Number of antipsychotic medications at discharge: 1 - Discharge Care Plan Goals to Promote Your Health: * To prevent worsening of your condition and complications * To maintain your health at the optimal level Directions to Meet Your Goals: Take your medications as prescribed Follow your dietary instruction Follow activity as directed Keep your appointments as scheduled Take your immunizations and boosters as scheduled If your symptoms worsen call your PCP, if no PCP go to Urgent Care Center or Emergency Room For 25/12 questions related to your inpatient stay or results of tests pending at discharge, please contact Dr. Deondre Neumann MD at Smoking is Dangerous to Your Health. Avoid second hand smoking
== END 2018-03-18 14:20 | disposition home or self-care (01) ==
LOC: H270 13:06
PROVIDERS: ADMIT Psychiatry & Neurology Psychiatry; ATTEND Psychiatry & Neurology Psychiatry
CPT/HCPCS: 80048; 80061; 80074; 82607; 83036; 84443; 86064; 86355; 86357; 86359; 86360; 86379; 86592; 86593; 86689; 86701; 86702; 86780; 86781; 87389; 88180; 88184; 88185; J0515; J1200; J1630; J2060; Q0163